=== PATIENT | male | born 1980 | race Two or more races ===

== ENCOUNTER 2018-10-09 19:26 | Emergency (ER) | payer OTHER ==
[~2018-10-09] VITALS: Ht 165.1 cm; Wt 72.6 kg
--- NOTE | 2018-10-09 19:32 | NUR ---
Pt bib RA with c/o bilateral flank pain starting today. No chest pain/sob. Respirations even + unlabored. No N/V/D. AAOx4. Speech clear. Able to speak in complete sentences. Facial smile symmetric. Responsive to verbal + tactile stimuli. [facility] health center assistant strong. No acute distress noted.
--- NOTE | 2018-10-09 19:34 | NUR ---
Dr. Khai ZULUAGA MD at bedside to evaluate pt
[2018-10-09 19:49] LABS: *BILIRUBIN,URIN NEGATIVE (NEGATIVE); *BLOOD, URINE NEGATIVE (NEGATIVE); *CLARITY,URINE CLEAR (CLEAR); *COLOR,URINE DARK YELLOW (YELLOW); *KETONES,URINE TRACE (NEGATIVE); LEUKOCYTE ESTERASE ,URINE NEGATIVE (NEGATIVE); NITRITE, URINE NEGATIVE (NEGATIVE); UGLUCOSE NEGATIVE (NEGATIVE)
[2018-10-09 19:59] LABS: MUCUS,URINE MODERATE /LPF (0-FEW); WBC,URINE 0-3 /HPF (0-3)
--- NOTE | 2018-10-09 20:14 | NUR ---
Patient discharged to home in stable conditon. Written and verbal after care instructions given. Patient verbalizes understanding of instructions. Pt ambulated out of ER in stable gait. All belongings w pt. VSS. NAD noted.
--- NOTE | 2018-10-09 20:15 | NUR ---
Pt states has someone to pick him up.
[2018-10-09 20:16] VITALS: BP 129/56
== END 2018-10-09 20:17 | disposition home or self-care (01) ==
LOC: ER 19:28
DX: Z00.00 Encounter for general adult medical examination without abnormal findings (principal); R10.9 Unspecified abdominal pain; R35.8 Other polyuria
CPT/HCPCS: A4663